=== PATIENT | female | born 1950 | race Caucasian/White ===

== ENCOUNTER 2019-02-19 06:20 | Day surgery (SDC) | payer OTHER ==
[2019-02-18 17:10] VITALS: BMI 27.9
[2019-02-19] MEDS ORDERED: MIDAZOLAM HCL 2 MG/2 ML SINGLE DOSE VIAL ONE (09:32)
[2019-02-19] MEDS ORDERED: ALBUTEROL SO4 8 GM HFA INHALER IH ONE (09:32)
[2019-02-19] MEDS ORDERED: PROPOFOL 20 ML ONE (09:32)
[2019-02-19] MEDS ORDERED: LIDOCAINE HCL/PF 2% SDV 5ML VIAL ONE (09:33)
[2019-02-19] MEDS ORDERED: ceFAZolin SODIUM 1 GM VIAL ONE (09:33)
[2019-02-19] MEDS ORDERED: SODIUM CHLORIDE 0.9% P/F 10 ML VIAL IJ ONE (09:33)
[2019-02-19] MEDS ORDERED: ceFAZolin SODIUM 1 GM VIAL IVPB ONE (09:48)
[2019-02-19] MEDS ORDERED: KETOROLAC TROMETHAMINE 30 MG/1 ML VIAL ONE (09:55)
[2019-02-19] MEDS ORDERED: BUPIVACAINE HCL/PF 0.5% (5 MG/ML) 30 ML VIAL IJ ONE ×2 (10:00→10:40)
[2019-02-19] MEDS ORDERED: LIDOCAINE HCL 1%, 10 MG/ML (20ML VIAL) INF ONE (10:00)
[2019-02-19] MEDS ORDERED: BACITRACIN 50,000 UNITS VIAL NR ONE (10:35)
[2019-02-19] MEDS ORDERED: DEXAMETHASONE SOD PHOSPHATE 4 MG/1 ML VIAL IVPUSH ONE (10:35)
[2019-02-19] MEDS ORDERED: DEXAMETHASONE SOD PHOSPHATE 4 MG/1 ML VIAL ONE (10:40)
[2019-02-19] MEDS ORDERED: oxyCODONE HCL 5 MG TABLET PO PRN (10:54)
[2019-02-19] MEDS ORDERED: ONDANSETRON 4 MG/2 ML VIAL IVPUSH PRN (10:54)
[2019-02-19] MEDS ORDERED: PROMETHAZINE HCL 25 MG/1 ML VIAL IVPUSH PRN (10:54)
[2019-02-19] MEDS ORDERED: LACTATED RINGERS SOLUTION 1,000 ML IV SCH (11:00)
[2019-02-19 11:57] VITALS: TEMP 97.5
[2019-02-19 13:07] VITALS: BP 134/71; PULSE 71
--- NOTE | 2019-02-19 20:06 | OP ---
Operative Note - Note: Operative Date: 02/19/19 Pre-Operative Diagnosis: Tumor with bone spur left foot Operation: Excision of tumor left foot. Debridement of bone spur plantar lateral 5th met head Left foot. Findings: Soft tissue mass. Exostosis left plantar lateral 5th met head. Post-Operative Diagnosis: Same as Pre-op Surgeon: Ebony Llanes Machining Associate: Dequan Young Anesthesia: Local Specimens Removed: Bone and soft tissue left foot Estimated Blood Loss (mls): 5 Operative Report Dictated: No
--- NOTE | 2019-02-25 10:16 | PATH ---
Surgical Pathology Report Patient Name: LUCY DELANEY [facility]. Rec. #: [id number] /Age/Gender: 1950 (Age: 68) / F Account: [id number] Location: [facility] Taken: 02/19/2019 Received: 02/19/2019 Reported: 02/25/2019 Physicians: Ebony Llanes DPM Specimen(s) Received LEFT 5TH METATARSAL FOOT TUMOR Clinical History Left foot mass of fifth metatarsal Final Diagnosis LEFT FIFTH METATARSAL FOOT TUMOR, EXCISION: FIBROCONNECTIVE TISSUE WITH NECROBIOSIS WITH PALISADED HISTIOCYTIC INFLAMMATION, CONSISTENT WITH RHEUMATOID NODULE. Comment: AFB and PAS stain fail to reveal microorganisms. 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 The differential diagnoses include granuloma annulare, necrobiosis lipoidica, and granulomatous inflammation of infectious etiology. Clinical correlation with clinical and radiologic settings is recommended. Electronically Signed Alda Luna M.D. Gross Description Received in formalin labeled "left fifth metatarsal foot tumor," is a 2.3 x 1.7 x 1.2 cm garduno-yellow soft tissue mass. Sectioning reveals garduno-yellow, solid, smooth parenchyma. Lead Burner Apprentice sections are submitted in one cassette. DL/02/20/2019 saudi/02/20/2019
--- NOTE | 2019-03-09 17:55 | OP ---
DATE OF OPERATION: 02/19/2019 SURGEON: Ebony Llanes DPM RACK PUNCHER: Dequan Young DPM PROCEDURE: 1.Excision of tumor. 2. bone spur removal, left foot of the 5th metatarsophalangeal joint area. PREOPERATIVE DIAGNOSIS: Tumor, left foot with exostosis metatarsal head, left foot. DESCRIPTION OF PROCEDURE: After noting all preoperative vital signs were within normal limits and after the surgical consent was signed and witnessed, the patient was brought to the OR, placed on a table in supine position. Once the patient was on the table, an IV line was started. Patient was sedated, and the patient was given a Dan block around the 5th metatarsophalangeal joint proximal to the palpable soft tissue mass and bone spur. Once this was done, the foot was then prepped and draped in the usual sterile fashion. A well-padded ankle tourniquet had been applied prior to the prep. The foot was then elevated and exsanguinated, and the tourniquet was elevated to 250 mmHg. Attention was then directed to the lateral aspect of the left foot where lazy S incision was created over the 5th metatarsophalangeal joint extending to the base of the toe and approximately 4 cm proximally. This incision was deepened using sharp and blunt dissection to the level of the tumor. Once the tumor was identified using sharp and blunt dissection, it was dissected out of the foot, and the specimen was sent down to pathology. All unavoidable vessels were ligated in the usual fashion. All other neurovascular structures were retracted out of surgical site. At this time, the lateral aspect of the 5th metatarsal head was palpated. Upon palpation, it was noted that there was an exostosis. An incision was then created into the capsular layer over the exostosis. This incision was deepened to the level of the bone. Once the bone was identified utilizing a ball bur. Area was paplated. No spicules noted. Once this was done, the wound was flushed with copious amounts of sterile saline that had antibiotic added to it. Once this was done, the wound was then closed in layers using 3-0 Vicryl for capsular closure, 4-0 Vicryl for subcutaneous closure, and 5-0 Vicryl in a subcuticular fashion for skin closure. Once this was done, Steri-strips, Betadine-soaked Adaptic, dry, sterile gauze, and a postoperative injection were put into place. The tourniquet was deflated, and capillary filling time was instantaneous to all 5 toes of the left foot. Patient tolerated the anesthesia and the procedure well. Patient returned to recovery room vital signs stable and vascular status intact. JUANA Vang/[id number] MTDGisselle
== END 2019-02-19 12:30 | disposition home or self-care (01) ==
LOC: JASU-SURG 06:20
PROVIDERS: ATTEND Podiatrist Foot Surgery
PROC: 0QBP0ZZ Excision of Left Metatarsal, Open Approach (ICD-10-PCS; 2019-02-19)
PROC: 0JBR0ZZ Excision of Left Foot Subcutaneous Tissue and Fascia, Open Approach (ICD-10-PCS; principal; 2019-02-19 10:00)
DX: D49.2 Neoplasm of unspecified behavior of bone, soft tissue, and skin (principal); M77.8 Other enthesopathies, not elsewhere classified; M89.9 Disorder of bone, unspecified; I10 Essential (primary) hypertension; E11.9 Type 2 diabetes mellitus without complications; M06.9 Rheumatoid arthritis, unspecified
CPT/HCPCS: 73630-TC-LT; 88305-TC; 88312-TC; 94760